=== PATIENT | female | born 1980 | race Caucasian/White ===

== ENCOUNTER 2020-01-15 13:04 | Emergency (ER) | payer MEDICAID, SELFPAY ==
[2020-01-15 13:35] VITALS: BP 105/70; PULSE 76; RESP 18; TEMP 37.3; O2SAT 98
--- NOTE | 2020-01-15 13:39 | ED.GENADULT ---
HPI - General Adult General Chief complaint: Upper Respiratory Infection Stated complaint: tingling in leg left Time Seen by Provider: 01/15/20 13:54 Source: patient and RN notes reviewed Mode of arrival: ambulatory Limitations: no limitations History of Present Illness HPI narrative: This is a 39 years old female presents to the office for an evaluation of intermittent head and chest congestion for one month. Associated with intermittent fever and chills. Deny vomiting, diarrhea, or rash. She also reported tingling sensation in her left feet for 4-day. Tingling/numbness sensation go up to her hip at times. She does not have a doctor. Deny recent back injury or trauma. Denies previous history of this. Denies family history of heart disease or diabetes. Related Data Allergies Allergy/AdvReac Type Severity Reaction Status Date / Time No Known Allergies Allergy Unverified 08/17/18 13:51 Review of Systems Review of Systems: Narrative: CONSTITUTIONAL: Denies unintention weight loss ENT: Reports congestion,sore throat CARDIOVASCULAR: Denies chest pain, palpitation, edema. RESPIRATORY: Denies dyspnea, wheezing. Reports cough; smokes 1pack/day GASTROINTESTINAL: Denies abdominal pain, nausea, vomiting, diarrhea. GENITOURINARY: Denies urinary or bowel incontinence SKIN: Denies rash MUSCULOSKELETAL: Denies acute back pain NEUROLOGIC: Denies lightheaded. Reports left leg tingling/numbness for four days. [facility] Social History Social History (Updated 01/15/20 @ 14:03 by ANGÉLICA Tomas) Smoking status: Current every day smoker Comments At time of signature, I agree with nursing past medical, surgical, social and family history. Exam Narrative: Exam Narrative: GENERAL: This is a well-nourished, well-developed patient, in no apparent distress. HEAD: normocephalic, atraumatic. EYES: PERRL. No facial droops. No slur speak. Sclera clear/white. Vision is grossly intact. EARS: External ears normal, auditory canals clear and without drainage, TMs normal without perforation. Hearing grossly intact. NOSE: External nose normal with no obvious nasal discharge, nares without redness, no rhinorrhea. THROAT: Mucous membranes moist, posterior pharynx clear. NECK: Neck supple, non-tender without lymphadenopathy, masses or thyromegaly. CARDIOVASCULAR: Regular rate and rhythm without murmurs, gallops, or rubs. RESPIRATORY: Clear to auscultation. Breath sounds equal bilaterally. No wheezes, rales, or rhonchi. GASTROINTESTINAL: Abdomen soft, non-tender, nondistended. Bowel sounds are active. No hepato-splenomegaly, or palpable masses. No guarding. SKIN: warm, intact with no suspicious lesions or rash, good texture and turgor. NEURO: awake, alert, and oriented to person, place and time. There were no obvious focal neurologic abnormalities. Steady gait; Patient able to tiptoe walking. EXTREMITIES: Normal range of motion in upper and lower extremities. Left pedal pulse normal. No edema. No calf tenderness. Negative Homans sign bilaterally. Knee reflexes intact. BACK: Nontender without deformity or crepitance. No flank tenderness. Negative SLRs. [place] Coma Scale Eye Opening: Spontaneous 4 [place] Coma Scale Motor: Obeys Commands 6 [place] Coma Scale Verbal: Oriented 5 Course Vital Signs Vital signs: Vital Signs Temperature 99.1 F 01/15/20 13:35 Pulse Rate 76 01/15/20 13:35 Respiratory Rate 18 01/15/20 13:35 Blood Pressure 105/70 01/15/20 13:35 Pulse Oximetry 98 01/15/20 13:35 Temperature 99.1 F 01/15/20 13:35 Pulse Rate 76 01/15/20 13:35 Respiratory Rate 18 01/15/20 13:35 Blood Pressure 105/70 01/15/20 13:35 Pulse Oximetry 98 01/15/20 13:35 Medical Decision Making MDM Narrative Medical decision making narrative: Discharge instructions reviewed with patient, as well as provided in writing per nursing staff. The instructions also include specific and strict return/GO TO THE ER as well as f/u in
== END 2020-01-15 14:10 | disposition home or self-care (01) ==
PROVIDERS: Emergency Provider Nurse Practitioner
DX: J06.9 Acute upper respiratory infection, unspecified (principal); R05 Cough; R20.0 Anesthesia of skin; R20.2 Paresthesia of skin; F17.200 Nicotine dependence, unspecified, uncomplicated
CPT/HCPCS: 99213; G0463

== ENCOUNTER 2020-06-06 10:52 | Emergency (ER) | payer BC, SELFPAY ==
[2020-06-06 10:58] VITALS: BP 113/74; PULSE 101; RESP 14; TEMP 36.8; O2SAT 100
--- NOTE | 2020-06-06 11:13 | ED.NAVMDI ---
HPI - Nausea/Vomiting/Diarrhea General Chief complaint: Nausea/Vomiting/Diarrhea Stated complaint: diarrhea/sore muscles in legs and back Time Seen by Provider: 06/06/20 11:14 Source: patient and RN notes reviewed History of Present Illness HPI Narrative: Patient is a 39-year-old female who presents the urgent care with complaints of body aches and a few loose stools. Patient states that 4 to 5 days ago she swam in a tillman and then was told that the tillman had bacteria in it . Patient states that she has had 2 days worth of body aches and 2 loose stools yesterday. Patient states that she feels that she has been very thirsty and has been drinking a influx of coffee. States that she took 2 doses of penicillin, 1 last night and one this morning for toothache. States that the penicillin was given to her from her sister. Patient denies any fever, nausea, vomiting, abdominal pain. Denies of any upper respiratory symptoms. Denies any urinary symptoms. No other acute complaints. No acute distress noted. Patient read the plan of care. Related Data Home Medications Medication Instructions Recorded Confirmed No Home Medications 06/06/20 06/06/20 Allergies Allergy/AdvReac Type Severity Reaction Status Date / Time No Known Allergies Allergy Verified 06/06/20 11:08 Review of Systems Review of Systems: Narrative: CONSTITUTIONAL: Denies fever, chills, or sweats. EYES: Denies visual changes, redness, or discharge. ENT: Denies rhinorrhea, congestion, sore throat, or otalgia. CARDIOVASCULAR: Denies chest pain, palpitations, or edema. RESPIRATORY: Denies cough or dyspnea. GASTROINTESTINAL: Denies abdominal pain, nausea, vomiting, or diarrhea. GENITOURINARY: Denies dysuria or hematuria. SKIN: Denies rash or itching. MUSCULOSKELETAL: Reports of body aches NEUROLOGIC: Denies headache, numbness, or weakness. All other systems reviewed are negative, except as documented in HPI. PMFSH Social History Social History (Updated 01/15/20 @ 14:03 by ANGÉLICA Tomas) Smoking status: Current every day smoker Comments At the time of my signature, I reviewed and agree with the nursing past medical, surgical, social, and family history. There is no relevant family history pertinent to the patient complaint. Exam Narrative: Exam Narrative: GENERAL: This is a well-nourished, well-developed patient, in no apparent distress. HEAD: normocephalic, atraumatic. EYES: PERRL. Sclera clear/white. Vision is grossly intact. EARS: External ears normal NOSE: External nose normal with no obvious nasal discharge, nares without redness, no rhinorrhea. THROAT: Mucous membranes moist NECK: Neck supple CARDIOVASCULAR: Regular rate and rhythm without murmurs, gallops, or rubs. RESPIRATORY: Clear to auscultation. Breath sounds equal bilaterally. No wheezes, rales, or rhonchi. GASTROINTESTINAL: Abdomen soft, non-tender, nondistended. Bowel sounds are active. SKIN: warm, intact with no suspicious lesions or rash, good texture and turgor. NEURO: awake, alert, and oriented to person, place and time. There were no obvious focal neurologic abnormalities. EXTREMITIES: No clubbing, cyanosis, or edema. BACK: No flank tenderness. Course Vital Signs Vital signs: Vital Signs Temperature 98.3 F 06/06/20 10:58 Pulse Rate 101 H 06/06/20 10:58 Respiratory Rate 14 06/06/20 10:58 Blood Pressure 113/74 06/06/20 10:58 Pulse Oximetry 100 06/06/20 10:58 Temperature 98.3 F 06/06/20 10:58 Pulse Rate 101 H 06/06/20 10:58 Respiratory Rate 14 06/06/20 10:58 Blood Pressure 113/74 06/06/20 10:58 Pulse Oximetry 100 06/06/20 10:58 Reviewed MDM - Nausea/Vomiting/Diarrhea MDM Narrative Medical decision making narrative: Reviewed lab results with the patient. She is aware that her urine analysis was negative for urinary tract infection. Advised the patient to increase water intake and rest. May use Tylenol/ibuprofen as needed. If you develop
== END 2020-06-06 11:34 | disposition home or self-care (01) ==
PROVIDERS: Emergency Provider Nurse Practitioner Family
DX: R52 Pain, unspecified (principal)
CPT/HCPCS: 81003; 99212; G0463